=== PATIENT | male | born 1975 | race Caucasian/White ===

== ENCOUNTER 2017-08-15 12:48 | Emergency (ER) | payer OTHER ==
[~2017-08-15] VITALS: Ht 180.3 cm; Wt 88.0 kg
[2017-08-15 12:55] VITALS: BP 159/100; PULSE 100; RESP 20; TEMP 97.5
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
[2017-08-15 13:18] LABS: AUTOMATED NEUTROPHIL # 4.2 TH/MM3 (1.8-7.7); BASOPHIL % 0.6 % (0.0-2.0); EOSINOPHIL % 0.3 % (0.0-4.0); HEMATOCRIT 47.5 % (39.0-51.0); HEMOGLOBIN 16.2 GM/DL (13.0-17.0); LYMPH % 23.6 % (9.0-44.0); LYMPHOCYTE # 1.6 TH/MM3 (1.0-4.8); MEAN CELL VOLUME 100.5 FL (80.0-100.0); MEAN CORPUSCULAR HEMOGLOBIN 34.1 PG (27.0-34.0); MEAN PLATELET VOLUME 6.8 FL (7.0-11.0); MONO % 12.5 % (0.0-8.0); MONOCYTE # 0.8 TH/MM3 (0-0.9); PLATELET COUNT 241 TH/MM3 (150-450); RED BLOOD COUNT 4.73 MIL/MM3 (4.50-5.90); RED CELL DISTRIBUTION WIDTH 13.9 % (11.6-17.2); WHITE BLOOD COUNT 6.7 TH/MM3 (4.0-11.0)
[2017-08-15 13:27] LABS: PROTHROMBIN TIME - PATIENT 9.7 SEC (9.8-11.6)
[2017-08-15 13:32] VITALS: BP 159/100; PULSE 115; RESP 18; O2SAT 95; O2SAT 96
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
[2017-08-15 15:47] VITALS: BP 143/94; PULSE 84; RESP 18; O2SAT 96
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
[2017-08-15] MEDS ORDERED: AUGM875T3 PO (16:05)
== END 2017-08-15 16:34 | disposition home or self-care (01) ==
LOC: NEPE 12:48
DX: Z04.1 Encounter for examination and observation following transport accident (principal); V29.3XXA Motorcycle rider (driver) (passenger) injured in unspecified nontraffic accident, initial encounter; S00.81XA Abrasion of other part of head, initial encounter; W55.03XA Scratched by cat, initial encounter
CPT/HCPCS: 70450; 70486; 72125; 85025; 85610; 85730; 99285

== ENCOUNTER 2017-11-10 08:56 | Inpatient (IN) | payer OTHER ==
[2017-11-10] VITALS (8 sets, daily range): BP systolic 137–179; BP diastolic 86–108; PULSE 100–126; RESP 18–22; TEMP 97.5–98.5; O2SAT 95–100
[~2017-11-10] VITALS: Ht 182.9 cm; Wt 88.0 kg
[~2017-11-10 08:56] MED LIST: AUGM875T3 PO
[2017-11-10] MEDS ORDERED: MORPHINE SULFATE 4 MG/ML INJ IM ONE (09:45)
[2017-11-10] MEDS ORDERED: ONDANSETRON ODT 4 MG TAB PO ONE (09:45)
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
[2017-11-10] MEDS ORDERED: MORPHINE SULFATE 4 MG/ML INJ IV PUSH ONE (10:45)
[2017-11-10] MEDS ORDERED: SODIUM CHLOR 0.9% 1000 ML INJ 1,000 ML IV SCH (10:55)
[2017-11-10] MEDS ORDERED: CYCL7.5T33 (11:26)
[2017-11-10] MEDS ORDERED: IBUP-232 PO (11:26)
--- NOTE | 2017-11-10 11:33 | RADRPT ---
EXAM DATE/TIME: 11/10/2017 11:02 [facility] COMPARISON: No previous studies available for comparison. INDICATIONS : Evaluate for pneumonia, pneumothorax, and communicable disease. Preop for left humerus surgery. MEDICAL HISTORY : None. SURGICAL HISTORY : Fusion, cervical. ENCOUNTER: Initial ACUITY: 1 day PAIN SCORE: 10/10 LOCATION: Left proximal humerus FINDINGS: A single view of the chest demonstrates the lungs to be symmetrically aerated without evidence of mas s, infiltrate or effusion. The cardiomediastinal contours are unremarkable. Osseous structures are intact. CONCLUSION: No acute disease. David Vu MD on November 10, 2017 at 11:30 Board Certified Radiologist. This report was verified electronically.
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
[2017-11-10] MEDS ORDERED: BISACODYL 10 MG SUPP RECTAL PRN (12:00)
[2017-11-10] MEDS ORDERED: ONDANSETRON HCL 4 MG/2 ML VIAL IVP PRN (12:00)
[2017-11-10] MEDS ORDERED: NALOXONE HCL 0.4 MG/ML AMP IV PUSH PRN ×2 (12:00→15:15)
[2017-11-10] MEDS ORDERED: SENNOSIDES 8.6 MG TAB PO PRN (12:00)
[2017-11-10] MEDS ORDERED: MAGNESIUM HYDROXIDE SUSP 30 ML CUP PO PRN (12:00)
[2017-11-10] MEDS ORDERED: HYDROmorphone HCL PF 2 MG/ML VIAL IV PUSH ONE (12:00)
[2017-11-10] MEDS ORDERED: LACTULOSE SYRUP 20 GM/30 ML CUP PO PRN (12:00)
[2017-11-10 12:15] LABS: AUTOMATED NEUTROPHIL # 3.8 TH/MM3 (1.8-7.7); BASOPHIL % 0.4 % (0.0-2.0); EOSINOPHIL % 0.2 % (0.0-4.0); HEMATOCRIT 47.4 % (39.0-51.0); HEMOGLOBIN 16.4 GM/DL (13.0-17.0); LYMPH % 14.9 % (9.0-44.0); LYMPHOCYTE # 0.8 TH/MM3 (1.0-4.8); MEAN CORPUSCULAR HEMOGLOBIN 35.4 PG (27.0-34.0); MEAN CORPUSCULAR HGB CONC 34.7 % (32.0-36.0); MEAN PLATELET VOLUME 7.3 FL (7.0-11.0); MONO % 12.3 % (0.0-8.0); MONOCYTE # 0.7 TH/MM3 (0-0.9); NEUT % 72.2 % (16.0-70.0); PLATELET COUNT 225 TH/MM3 (150-450); RED BLOOD COUNT 4.65 MIL/MM3 (4.50-5.90); RED CELL DISTRIBUTION WIDTH 13.8 % (11.6-17.2); WHITE BLOOD COUNT 5.3 TH/MM3 (4.0-11.0)
[2017-11-10 12:26] LABS: ALBUMIN 4.1 GM/DL (3.4-5.0); ALT (GPT) 36 U/L (12-78); AST (GOT) 44 U/L (15-37); BICARBONATE 22.6 MEQ/L (21.0-32.0); BLOOD UREA NITROGEN 9 MG/DL (7-18); CALCIUM 9.3 MG/DL (8.5-10.1); CHLORIDE 104 MEQ/L (98-107); CREATININE 0.75 MG/DL (0.60-1.30); GLOMERULAR FILTRATION RATE 114 ML/MIN (>89); GLUCOSE,RANDOM 91 MG/DL (74-106); SODIUM (NA) 138 MEQ/L (136-145)
[2017-11-10 12:27] LABS: ALKALINE PHOSPHATASE 93 U/L (45-117); TOTAL BILIRUBIN ADULT 0.5 MG/DL (0.2-1.0); TOTAL PROTEIN 8.4 GM/DL (6.4-8.2)
[2017-11-10 14:37] LABS: INTERNATIONAL NORMALIZED RATIO 1.3 RATIO; PROTHROMBIN TIME - PATIENT 12.9 SEC (9.8-11.6)
[2017-11-10] MEDS ORDERED: ACETAMINOPHEN/HYDROcodone 325 MG/5 MG TAB PO PRN (15:15)
[2017-11-10] MEDS ORDERED: ACETAMINOPHEN 325 MG TAB PO PRN (15:15)
[2017-11-10] MEDS ORDERED: MORPHINE SULFATE 2 MG/ML SYRINGE IV PUSH PRN (15:15)
[2017-11-10] MEDS: SODIUM CHLORIDE 0.9% FLUSH 10 ML FLUSH IV FLUSH PRN ×3 (15:51→23:13)
[2017-11-10] MEDS: HYDROmorphone HCL PF 2 MG/ML VIAL IV PUSH PRN ×3 (17:10→23:12)
[2017-11-10] MEDS: SODIUM CHLORIDE 0.9% FLUSH 10 ML FLUSH IV FLUSH SCH (19:47)
[2017-11-10] MEDS: ACETAMINOPHEN/HYDROcodone 325 MG/7.5 MG TAB PO PRN (20:52)
[2017-11-10] MEDS ORDERED: CHLORHEXIDINE GLUCONATE 2 % 1 PACK (2 CLOTHS) TOPICAL PRN (21:15)
[2017-11-10] MEDS ORDERED: POVIDONE IODINE 5% (ANTISEPSIS KIT) 4 APPLICATIONS EACH NARE PRN (21:15)
[2017-11-10] MEDS ORDERED: SODIUM CHLORID 0.9% 500 ML IV PRN (21:15)
[2017-11-10] MEDS ORDERED: LACTATED RINGER'S 1000 ML IV PRN (21:15)
[2017-11-11] VITALS: BP 151/106; PULSE 108; RESP 19; TEMP 98.4; O2SAT 95
[2017-11-11] MEDS: ACETAMINOPHEN/HYDROcodone 325 MG/7.5 MG TAB PO PRN ×2 (00:50→05:08)
[2017-11-11] MEDS: HYDROmorphone HCL PF 2 MG/ML VIAL IV PUSH PRN ×5 (03:55→22:36)
[2017-11-11] MEDS: SODIUM CHLORIDE 0.9% FLUSH 10 ML FLUSH IV FLUSH PRN ×2 (03:55→22:36)
[2017-11-11 04:00] VITALS: BP 155/93; PULSE 112; RESP 19; TEMP 98.7; O2SAT 94
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
[2017-11-11] MEDS ORDERED: HYDR-3583 PO (06:39)
[2017-11-11] MEDS ORDERED: VITA500012 PO (06:39)
[2017-11-11] MEDS ORDERED: CALCTAB19 PO (06:39)
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
[2017-11-11] MEDS ORDERED: VANCOMYCIN HCL 1000 MG VIAL ONE (07:15)
[2017-11-11] MEDS ORDERED: GENTAMICIN SULFATE 80 MG/2 ML VIAL ONE (07:15)
[2017-11-11] MEDS ORDERED: ceFAZolin INJ 1,000 MG VIAL ONE (07:15)
[2017-11-11] MEDS ORDERED: SODIUM CHLOR 0.9% 250 ML INJ 250 ML ONE (07:16)
[2017-11-11] MEDS ORDERED: ACETAMINOPHEN 1000 MG/100 ML 100 ML IV ONE (07:23)
[2017-11-11] MEDS ORDERED: HYDROmorphone HCL PF 2 MG/ML VIAL ONE (07:24)
[2017-11-11 08:30] VITALS: O2SAT 93
[2017-11-11] MEDS ORDERED: DEXMEDETOMIDINE HCL 200 MCG/2 ML VIAL ONE (08:34)
[2017-11-11] MEDS ORDERED: diphenhydrAMINE HCL 25 MG CAP PO PRN (09:30)
--- NOTE | 2017-11-11 09:34 | PD.OP ---
cc: Brooks Mendieta MD Operative Report Date of Surgery: Nov 11, 2017 Preoperative Diagnosis: Left proximal humerus fracture, left shoulder dislocation Postoperative Diagnosis: Procedure: Open reduction left shoulder dislocation, open reduction fixation left proximal humerus fracture Anesthesia: General Surgeon: Brooks Mendieta Angle Shearer(s): JOHAN Daniel PA-C The surgical procedure was assisted by my physician data control assistant. My P.A. presence was necessary throughout this case for the manipulation and positioning of the surgical extremity. My P.A. was assisting me throughout the duration of this procedure. The skill set of a physician data control assistant was medically necessary to complete this procedure. During the surgical case the surgical instrument repair specialist was working at the back table and the physician data control assistant was directly assisting me. Operation and Findings: Implants used: Synthes Plan of activity: Sling and swath, start pendulum exercises in 2 weeks Patient was seen and evaluated preoperatively. Patient was found to have a displaced left shoulder dislocation with proximal humerus fracture. The risks and benefits of surgical and nonsurgical options were discussed in detail and informed consent was obtained for surgery. Patient was brought to the operating room and placed on or table. IV sedation and GETA were administered by anesthesiologist. Antibiotics were given prior to incision. Operative arm and shoulder were prepped with alcohol followed by Hibiclens and draped usual sterile fashion. Timeout procedure was performed. Procedure began with a 5 inch incision over the anterior shoulder. Cephalic vein was identified. A deltopectoral approach was utilized. The fracture was now visualized. Soft tissue was retracted. A #5 FiberWire suture was placed into the rotator rotator cuff and greater tuberosity. Attention was now turned to reduction of the glenohumeral joint dislocation. 2 threaded Steinmann pins were placed into the humeral head. Fluoroscopy was used to confirm appropriate pin placement. The humeral head was now manipulated. Traction was applied. The humeral head was reduced up to the glenoid. Next attention was turned towards open reduction internal fixation of the fracture. Gentle traction was applied. The humeral shaft was reduced to the humeral head. A second #5 FiberWire suture was placed into the lesser tuberosity and subscapularis tendon. Fracture was manipulated to achieve excellent reduction. Multiplanar fluoroscopy confirmed well aligned fracture. Multiple K wires were used to hold provisional fixation. A Synthes proximal humerus plate was selected. Plate was provisionally held in place K wires. 3.5 cortical screws were used to compress plate to bone. Fluoroscopy confirmed appropriate plate placement and fracture reduction. Multiple locking screws were now placed in the humeral head. Screws were predrilled and premeasured for appropriate length. Care was taken not to penetrate the articular surface. Additional screws were placed in the humeral shaft. The FiberWire sutures were passed through the holes of the plate and sutured to the plate for additional stability. Final fluoroscopy revealed well aligned fracture with well-placed hardware. Wound was thoroughly irrigated. Fascia was closed with # 1 Vicryl, subcutaneous tissues closed with 3-0 Vicryl, and skin was closed with may. Sterile dressings were applied. Patient was placed into a sling. Patient was awakened and transferred to recovery in stable condition. Needle and sponge counts were correct. Brooks Mendieta MD Nov 11, 2017 09:34
[2017-11-11] MEDS ORDERED: DO NOT ADM ANY ANTICOAGULANT DRUGS PRN (09:52)
[2017-11-11] MEDS ORDERED: MIDAZOLAM HCL 2 MG/2 ML VIAL ONE (10:01)
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
--- NOTE | 2017-11-11 10:10 | RADRPT ---
EXAM DATE/TIME: 11/11/2017 09:13 [facility] COMPARISON: No previous studies available for comparison. INDICATIONS : Left shoulder open reduction internal fixation. MEDICAL HISTORY : None. SURGICAL HISTORY : Fusion, cervical. ENCOUNTER: Subsequent ACUITY: 1 day PAIN SCORE: Non-responsive. LOCATION: Left shoulder FINDINGS: Anatomic alignment following reduction internal fixation. CONCLUSION: Anatomic alignment. Bravo Spangler MD FACR on November 11, 2017 at 10:07 Board Certified Radiologist. This report was verified electronically.
[2017-11-11] MEDS ORDERED: HYDROmorphone HCL PF 0.5 MG/0.5 ML SYRINGE ONE (10:40)
[2017-11-11] MEDS ORDERED: ERGOCALCIFEROL (VIT D2) 50,000 UNIT CAP PO SCH (11:00)
[2017-11-11] MEDS: SODIUM CHLORIDE 0.9% FLUSH 10 ML FLUSH IV FLUSH SCH ×2 (11:07→21:00)
[2017-11-11] MEDS ORDERED: LIDOCAINE HCL 1% PF 5 ML SYRINGE OTHER ONE (12:00)
[2017-11-11] MEDS ORDERED: SODIUM CHLORIDE 0.9% 10 ML VIAL IV ONE (12:00)
[2017-11-11] MEDS ORDERED: PROPOFOL 200 MG/20 ML AMP IV ONE (12:00)
[2017-11-11] MEDS ORDERED: DEXAMETHASONE SOD PHOS 4 MG/ML VIAL IV ONE (12:00)
[2017-11-11] MEDS ORDERED: PHENYLEPH/NS 1000 MCG/10 ML SYR IV ONE (12:00)
[2017-11-11] MEDS ORDERED: NEOSTIGMINE 5 MG/5 ML SYRINGE IV PUSH ONE (12:00)
[2017-11-11] MEDS ORDERED: GLYCOPYRROLATE 1 MG/5 ML SYRINGE IV PUSH ONE (12:00)
[2017-11-11] MEDS ORDERED: ONDANSETRON HCL 4 MG/2 ML VIAL IV ONE (12:00)
[2017-11-11] MEDS ORDERED: LACTATED RINGER'S 1000 ML INJ 1,000 ML IV ONE (12:00)
[2017-11-11] MEDS ORDERED: ESMOLOL HCL 100 MG/10 ML VIAL IV ONE (12:00)
[2017-11-11] MEDS ORDERED: METOPROLOL TARTRATE 5 MG/5 ML VIAL IV ONE (12:00)
[2017-11-11] MEDS: CALCIUM/VITAMIN D 250 MG/125 U TAB PO SCH ×2 (12:33→16:46)
[2017-11-11] MEDS: ACETAMINOPHEN/HYDROcodone 325 MG/10 MG TAB PO PRN ×3 (12:37→21:22)
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
[2017-11-11 15:10] LABS: AUTOMATED NEUTROPHIL # 9.5 TH/MM3 (1.8-7.7); BASOPHIL % 0.1 % (0.0-2.0); HEMATOCRIT 37.3 % (39.0-51.0); HEMOGLOBIN 12.8 GM/DL (13.0-17.0); LYMPH % 3.1 % (9.0-44.0); LYMPHOCYTE # 0.3 TH/MM3 (1.0-4.8); MEAN CELL VOLUME 102.5 FL (80.0-100.0); MEAN CORPUSCULAR HEMOGLOBIN 35.3 PG (27.0-34.0); MEAN CORPUSCULAR HGB CONC 34.4 % (32.0-36.0); MEAN PLATELET VOLUME 7.3 FL (7.0-11.0); MONO % 4.9 % (0.0-8.0); MONOCYTE # 0.5 TH/MM3 (0-0.9); NEUT % 91.9 % (16.0-70.0); PLATELET COUNT 205 TH/MM3 (150-450); RED BLOOD COUNT 3.64 MIL/MM3 (4.50-5.90); RED CELL DISTRIBUTION WIDTH 13.8 % (11.6-17.2); WHITE BLOOD COUNT 10.4 TH/MM3 (4.0-11.0)
[2017-11-11 15:35] VITALS: BP 136/95; PULSE 113; RESP 19; TEMP 97.9; O2SAT 94
[2017-11-11 15:43] LABS: ALBUMIN 3.3 GM/DL (3.4-5.0); ALKALINE PHOSPHATASE 74 U/L (45-117); ALT (GPT) 29 U/L (12-78); AST (GOT) 35 U/L (15-37); BICARBONATE 26.3 MEQ/L (21.0-32.0); BLOOD UREA NITROGEN 7 MG/DL (7-18); CALCIUM 8.4 MG/DL (8.5-10.1); CHLORIDE 99 MEQ/L (98-107); CREATININE 0.87 MG/DL (0.60-1.30); GLOMERULAR FILTRATION RATE 96 ML/MIN (>89); GLUCOSE,RANDOM 208 MG/DL (74-106); SODIUM (NA) 134 MEQ/L (136-145); TOTAL BILIRUBIN ADULT 0.9 MG/DL (0.2-1.0); TOTAL PROTEIN 7.2 GM/DL (6.4-8.2)
[2017-11-11] MEDS: ceFAZolin 2 GM PREMIX 50 ML IV SCH ×2 (16:00→23:20)
[2017-11-11 18:05] VITALS: O2SAT 94
[2017-11-11 20:00] VITALS: BP 151/89; PULSE 117; RESP 19; TEMP 98.3; O2SAT 94
[2017-11-11 21:46] LABS: BACTERIA, URINE RARE /hpf; BILIRUBIN, URINE NEG (NEG); BLOOD, URINE SMALL (NEG); GLUCOSE,URINE 300 mg/dL (NEG); KETONE, URINE NEG (NEG); MUCUS URINE FEW /lpf (OCC); NITRITE,URINE NEG (NEG); PH, URINE 6.5 (5.0-8.5); URINE COLOR LIGHT-YELLOW (YELLW/STRAW); URINE LEUKOCYTE ESTERASE SMALL (NEG)
[2017-11-12] VITALS: BP 137/87; PULSE 120; RESP 19; TEMP 98.9; O2SAT 93
[2017-11-12] MEDS: ACETAMINOPHEN/HYDROcodone 325 MG/10 MG TAB PO PRN ×6 (02:15→22:47)
[2017-11-12] MEDS: ZOLPIDEM TARTRATE 5 MG TAB PO PRN (02:15)
[2017-11-12 04:00] VITALS: BP 132/78; PULSE 112; RESP 19; TEMP 98.2; O2SAT 93
--- NOTE | 2017-11-12 06:43 | HHI.FF ---
Face to Face Verification Diagnosis: (1) Closed fracture dislocation of left shoulder Occupational Therapy Left UE Weight Bearing: Non WB Left UE Range of Motion: No ROM Nursing Dressing Changes: Daily dressing change, 4x4s, Xeroform, Coverderm/Primapore I have seen patient Chavez Terry, BRADY on 11/12/17. My clinical findings support the need for the requested home health care services because: Ltd mobility - disease progression I certify that my clinical findings support that this patient is homebound because: Post-op weakness Vicente Rider/Clamshell Engineer PA Nov 12, 2017 06:43
--- NOTE | 2017-11-12 06:45 | PD.ORT.PN ---
Subjective Subjective Remarks POd 1 s/p ORIF left proximal humerus doing well. reports pain improved Objective Vitals Vital Signs Date Time Temp Pulse Resp B/P (MAP) Pulse Ox O2 Delivery O2 Flow Rate FiO2 11/12/17 04:00 98.2 112 19 132/78 (96) 93 11/12/17 00:00 98.9 120 19 137/87 (104) 93 11/11/17 20:00 98.3 117 19 151/89 (109) 94 11/11/17 19:05 18 11/11/17 18:05 94 Nasal Cannula 3.00 11/11/17 18:03 18 11/11/17 15:35 97.9 113 19 136/95 (109) 94 11/11/17 11:00 98.7 110 20 143/93 (110) 92 Nasal Cannula 2 11/11/17 10:45 108 16 148/96 (113) 94 Nasal Cannula 2 11/11/17 10:30 119 20 156/95 (115) 96 Nasal Cannula 2 11/11/17 10:15 109 20 130/86 (101) 95 Nasal Cannula 2 11/11/17 10:00 114 20 139/90 (106) 96 Nasal Cannula 2 11/11/17 09:53 98.1 123 14 131/88 (102) 93 Nasal Cannula 2 11/11/17 08:30 93 Nasal Cannula 2.00 I/O 11/11/17 11/11/17 11/11/17 11/12/17 11/12/17 11/12/17 07:00 15:00 23:00 07:00 15:00 23:00 Intake Total 2000 ml 1994 ml Output Total 275 ml 1750 ml Balance 1725 ml 244 ml Intake Oral 0 ml 550 ml IV Total 500 ml 1444 ml Other 1500 ml Output Urine Total 200 ml 1750 ml Estimated Blood Loss 75 ml # Bowel Movements 0 Result Diagram: 11/11/17 1445 11/11/17 1449 Imaging Last 24 hours Impressions Chest X-Ray 11/10/17 1055 Signed Impressions: Service Date/Time: Friday, November 10, 2017 11:02 - CONCLUSION: No acute disease. David Vu MD Objective Remarks LUE: dressings have bloody drainage but intact. nvi with good motion of fingers and full sensation to median and ulnar nerve Assessment & Plan Assessment and Plan 1) Left proximal humerus with humeral head dislocation s/p ORIF - POD 1 -NWB -dressing changes beginning today -no ROM -maintain sling and swathe at all times -ortho clear for discharge but patient needs to make arranagements with mother to pick him up. may be tomorrow before those arrangements made -f/u with Abdoul or Pa in 2 weeks Vicente Rider/[employer] PA Nov 12, 2017 06:45
[2017-11-12 07:59] VITALS: BP 137/77; PULSE 109; RESP 18; TEMP 97.3; O2SAT 94
[2017-11-12] MEDS: CALCIUM/VITAMIN D 250 MG/125 U TAB PO SCH ×3 (08:37→18:00)
[2017-11-12] MEDS: CHOLECALCIFEROL (VIT D3) 1000 UNIT TAB PO SCH (08:37)
[2017-11-12] MEDS: ceFAZolin 2 GM PREMIX 50 ML IV SCH (08:38)
[2017-11-12] MEDS: SODIUM CHLORIDE 0.9% FLUSH 10 ML FLUSH IV FLUSH SCH ×2 (08:38→21:00)
[2017-11-12] MEDS: HYDROmorphone HCL PF 2 MG/ML VIAL IV PUSH PRN (10:20)
[2017-11-12 11:34] VITALS: BP 144/87; PULSE 108; RESP 18; TEMP 98.5; O2SAT 94
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
[2017-11-12 14:15] LABS: AUTOMATED NEUTROPHIL # 7.3 TH/MM3 (1.8-7.7); BASOPHIL % 0.3 % (0.0-2.0); EOSINOPHIL % 0.2 % (0.0-4.0); HEMATOCRIT 32.5 % (39.0-51.0); HEMOGLOBIN 11.6 GM/DL (13.0-17.0); LYMPH % 12.3 % (9.0-44.0); LYMPHOCYTE # 1.1 TH/MM3 (1.0-4.8); MEAN CELL VOLUME 100.8 FL (80.0-100.0); MEAN CORPUSCULAR HEMOGLOBIN 35.9 PG (27.0-34.0); MEAN CORPUSCULAR HGB CONC 35.6 % (32.0-36.0); MEAN PLATELET VOLUME 7.5 FL (7.0-11.0); MONO % 9.3 % (0.0-8.0); MONOCYTE # 0.9 TH/MM3 (0-0.9); NEUT % 77.9 % (16.0-70.0); PLATELET COUNT 185 TH/MM3 (150-450); RED BLOOD COUNT 3.22 MIL/MM3 (4.50-5.90); RED CELL DISTRIBUTION WIDTH 13.1 % (11.6-17.2); WHITE BLOOD COUNT 9.3 TH/MM3 (4.0-11.0)
[2017-11-12 15:02] LABS: ALKALINE PHOSPHATASE 76 U/L (45-117); ALT (GPT) 23 U/L (12-78); AST (GOT) 30 U/L (15-37); BICARBONATE 30.6 MEQ/L (21.0-32.0); BLOOD UREA NITROGEN 7 MG/DL (7-18); CHLORIDE 99 MEQ/L (98-107); CREATININE 0.68 MG/DL (0.60-1.30); GLOMERULAR FILTRATION RATE 128 ML/MIN (>89); GLUCOSE,RANDOM 121 MG/DL (74-106); SODIUM (NA) 137 MEQ/L (136-145); TOTAL BILIRUBIN ADULT 0.4 MG/DL (0.2-1.0); TOTAL PROTEIN 7.1 GM/DL (6.4-8.2)
[2017-11-12 15:38] VITALS: BP 147/82; PULSE 110; RESP 19; TEMP 98.9; O2SAT 93
[2017-11-12 20:00] VITALS: BP 140/87; PULSE 117; RESP 18; TEMP 98; O2SAT 95
[2017-11-13] MEDS: ACETAMINOPHEN/HYDROcodone 325 MG/10 MG TAB PO PRN ×4 (01:51→14:48)
[2017-11-13] MEDS: ZOLPIDEM TARTRATE 5 MG TAB PO PRN (01:51)
[2017-11-13 01:53] VITALS: BP 130/87; PULSE 110; RESP 18; TEMP 98.3; O2SAT 95
[2017-11-13 08:00] VITALS: BP 160/91; PULSE 116; RESP 16; TEMP 97.9; O2SAT 95
[2017-11-13] MEDS: CALCIUM/VITAMIN D 250 MG/125 U TAB PO SCH ×2 (08:25→11:45)
[2017-11-13] MEDS: CHOLECALCIFEROL (VIT D3) 1000 UNIT TAB PO SCH (08:25)
[2017-11-13] MEDS: SODIUM CHLORIDE 0.9% FLUSH 10 ML FLUSH IV FLUSH SCH (08:32)
[2017-11-13] MEDS ORDERED: POTASSIUM CHLORIDE 10 MEQ CAP PO ONE (08:45)
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
--- NOTE | 2017-11-13 10:35 | HHI.DCPOC ---
Discharge Care Plan Diagnosis: (1) Closed fracture dislocation of left shoulder (2) Macrocytosis without anemia (3) Tachycardia Goals to Promote Your Health * To prevent worsening of your condition and complications * To maintain your health at the optimal level Directions to Meet Your Goals Take your medications as prescribed Follow your dietary instruction Follow activity as directed Keep your appointments as scheduled Take your immunizations and boosters as scheduled If your symptoms worsen call your PCP, if no PCP go to Urgent Care Center or Emergency Room Smoking is Dangerous to Your Health. Avoid second hand smoke Call the 24-hour hour crisis hotline for domestic abuse at Penny Rodríguez MD R2 Nov 13, 2017 10:35
[2017-11-13 12:00] VITALS: BP 163/88; PULSE 100; RESP 16; TEMP 97.5; O2SAT 96
== END 2017-11-13 15:02 | disposition home or self-care (01) | DRG 494 ==
LOC: NEPD 08:56 → NEDA 11:26 → N06B 18:45 → OBSVTOIN 11-11 08:07
PROVIDERS: ADMIT Family Medicine; ATTEND Family Medicine
PROC: 0PSD04Z Reposition Left Humeral Head with Internal Fixation Device, Open Approach (ICD-10-PCS; principal; 2017-11-11 07:45)
DX: S42.212A Unspecified displaced fracture of surgical neck of left humerus, initial encounter for closed fracture (principal); D75.89 Other specified diseases of blood and blood-forming organs; R00.0 Tachycardia, unspecified; M54.2 Cervicalgia; M79.605 Pain in left leg; F17.210 Nicotine dependence, cigarettes, uncomplicated; V89.2XXA Person injured in unspecified motor-vehicle accident, traffic, initial encounter; Y92.410 Unspecified street and highway as the place of occurrence of the external cause; Z91.013 Allergy to seafood
CPT/HCPCS: 71045; 72050; 73030; 73552; 73610; 76000; 80053; 80307; 81001; 82948; 85025; 85610; 85730; 96361; 96372; 96374; 96375; 96376; C1713; G0378; J0131; J0690; J1100; J1170; J1580; J2250; J2270; J2370; J2405; J2710; J3010; J3370; J7030; J7050; J7120